=== PATIENT | female | born 1985 | race Two or more races ===

== ENCOUNTER → 2020-06-12 | Outpatient (CLI) | payer BC ==
[2020-06-12 16:35] LABS: Basophils # (auto) 0.1 10 ^3/uL (0-0.2); Basophils % (auto) 0.7 % (0.0-2.0); Eosinophils # (auto) 0.1 10 ^3/uL (0-0.8); Eosinophils % (auto) 1.5 % (0.0-7.0); Hematocrit 41.6 % (36.0-46.0); Hemoglobin 13.7 g/dL (12.2-16.2); Lymphocytes # (auto) 2.7 10 ^3/uL (0.4-5.4); Lymphocytes % (auto) 32.2 % (10.0-50.0); Mean Corpuscular Hemoglobin 28.1 pg (28.0-32.0); Mean Corpuscular Volume 85.3 fL (80.0-100.0); Monocytes # (auto) 0.4 10 ^3/uL (0-1.3); Monocytes % (auto) 4.6 % (0.0-12.0); Neutrophils # (auto) 5.2 10 ^3/uL (1.6-8.6); Platelet Count (auto) 289 10^3/uL (140-450); Red Blood Cells 4.88 10^6/uL (4.0-5.20); Red Cell Distribution Width 13.7 % (11.8-14.3); White Blood Cell 8.5 10^3/uL (4.4-10.8)
[2020-06-12 16:46] LABS: Albumin 3.9 g/dL (3.4-5.0); Calcium 8.8 mg/dL (8.5-10.1); Potassium 3.8 mmol/L (3.5-5.1)
[2020-06-12 16:50] LABS: BUN/Creatinine Ratio 11.6; Bilirubin, Total 0.4 mg/dL (0.2-1.0)
== END | disposition home or self-care (01) ==
LOC: LAB 16:08
PROVIDERS: ATTEND Internal Medicine Nephrology
DX: E66.01 Morbid (severe) obesity due to excess calories (principal); D18.03 Hemangioma of intra-abdominal structures
CPT/HCPCS: 36415; 80053; 84443; 85025

== ENCOUNTER → 2021-09-03 | Outpatient (CLI) | payer OTHER ==
[2021-09-03 10:25] LABS: Urine Bacteria FEW /hpf (None Seen); Urine Blood Negative /uL (Negative); Urine Specific Gravity 1.015 (1.001-1.035); Urine WBC 1 /hpf (0 - 5)
[2021-09-03 10:53] LABS: Potassium 4.2 mmol/L (3.5-5.1)
[2021-09-03 10:55] LABS: Basophils # (auto) 0 10 ^3/uL (0-0.2); Basophils % (auto) 0.5 % (0.0-2.0); Eosinophils # (auto) 0.1 10 ^3/uL (0-0.8); Eosinophils % (auto) 1.5 % (0.0-7.0); Hematocrit 41.4 % (36.0-46.0); Hemoglobin 13.6 g/dL (12.2-16.2); Lymphocytes # (auto) 2.1 10 ^3/uL (0.4-5.4); Lymphocytes % (auto) 33.5 % (10.0-50.0); Mean Corpuscular Hemoglobin 27.5 pg (28.0-32.0); Mean Corpuscular Hgb Conc. 32.8 g/dL (32.0-36.0); Mean Corpuscular Volume 83.9 fL (80.0-100.0); Monocytes # (auto) 0.4 10 ^3/uL (0-1.3); Monocytes % (auto) 7.3 % (0.0-12.0); Neutrophils # (auto) 3.5 10 ^3/uL (1.6-8.6); Neutrophils % (auto) 57.2 % (37.0-80.0); Nucleated Red Blood Cells % 0.1 %; Red Blood Cells 4.93 10^6/uL (4.0-5.20); White Blood Cell 6.2 10^3/uL (4.4-10.8)
[2021-09-03 11:05] LABS: Albumin 3.6 g/dL (3.4-5.0); BUN/Creatinine Ratio 17.4; Bilirubin, Total 0.4 mg/dL (0.2-1.0); Total Protein 7.6 g/dL (6.4-8.2)
== END | disposition home or self-care (01) ==
LOC: LAB 09:28
PROVIDERS: ATTEND Internal Medicine Nephrology
DX: R10.84 Generalized abdominal pain (principal)
CPT/HCPCS: 36415; 80053; 80061; 81001; 83036; 84443; 85025

== ENCOUNTER → 2022-09-19 | Outpatient (CLI) | payer OTHER ==
[2022-09-19 11:00] LABS: Basophils # (auto) 0 10 ^3/uL (0-0.2); Basophils % (auto) 0.6 % (0.0-2.0); Eosinophils # (auto) 0.1 10 ^3/uL (0-0.8); Eosinophils % (auto) 1.6 % (0.0-7.0); Hematocrit 40.8 % (36.0-46.0); Hemoglobin 13.5 g/dL (12.2-16.2); Lymphocytes # (auto) 2.5 10 ^3/uL (0.4-5.4); Lymphocytes % (auto) 30.8 % (10.0-50.0); Mean Corpuscular Hemoglobin 27.6 pg (28.0-32.0); Mean Corpuscular Volume 83.5 fL (80.0-100.0); Monocytes # (auto) 0.6 10 ^3/uL (0-1.3); Neutrophils # (auto) 4.8 10 ^3/uL (1.6-8.6); Nucleated Red Blood Cells % 0.2 %; Red Blood Cells 4.89 10^6/uL (4.0-5.20); Red Cell Distribution Width 14.2 % (11.8-14.3)
[2022-09-19 11:46] LABS: Albumin 3.6 g/dL (3.4-5.0)
[2022-09-19 11:53] LABS: BUN/Creatinine Ratio 22.2 (10.0-20.0); Bilirubin, Total 0.3 mg/dL (0.2-1.0); Calcium 8.9 mg/dL (8.5-10.1); Total Protein 7.5 g/dL (6.4-8.2)
== END | disposition home or self-care (01) ==
LOC: LAB 09:26
PROVIDERS: ATTEND Nurse Practitioner Family
DX: K76.0 Fatty (change of) liver, not elsewhere classified (principal); R73.9 Hyperglycemia, unspecified; E78.00 Pure hypercholesterolemia, unspecified
CPT/HCPCS: 36415; 80053; 80061; 82306; 84439; 84443; 85025

== ENCOUNTER → 2024-01-18 | Outpatient (CLI) | payer OTHER ==
[2024-01-18 08:10] LABS: Basophils # (auto) 0 10 ^3/uL (0-0.2); Basophils % (auto) 0.4 % (0.0-2.0); Eosinophils # (auto) 0.2 10 ^3/uL (0-0.8); Eosinophils % (auto) 1.9 % (0.0-7.0); Hematocrit 38.3 % (36.0-46.0); Lymphocytes # (auto) 2.9 10 ^3/uL (0.4-5.4); Lymphocytes % (auto) 33.9 % (10.0-50.0); Mean Corpuscular Hemoglobin 28.2 pg (28.0-32.0); Mean Corpuscular Volume 83.1 fL (80.0-100.0); Monocytes # (auto) 0.6 10 ^3/uL (0-1.3); Monocytes % (auto) 7.4 % (0.0-12.0); Neutrophils # (auto) 4.9 10 ^3/uL (1.6-8.6); Neutrophils % (auto) 56.4 % (37.0-80.0); Red Blood Cells 4.61 10^6/uL (4.0-5.20); Red Cell Distribution Width 14.6 % (11.8-14.3); White Blood Cell 8.7 10^3/uL (4.4-10.8)
[2024-01-18 09:01] LABS: Alanine Aminotransferase 29 U/L (7-40); Albumin 4.4 g/dL (3.2-4.8); Alkaline Phosphatase 81 U/L (46-116); Anion Gap 7 (5-15); Aspartate Aminotransferase 12 U/L (13-40); BUN/Creatinine Ratio 15.8 (10.0-20.0); Bilirubin, Total 0.4 mg/dL (0.2-1.0); Blood Urea Nitrogen 12 mg/dL (9-23); Calcium 9.3 mg/dL (8.7-10.4); Carbon Dioxide 24 mmol/L (20-30); Chloride 108 mmol/L (98-107); Cholesterol 142 mg/dL (< 200); Glucose 105 mg/dL (74-106); HDL Cholesterol 42 mg/dL (40-59); LDL Cholesterol 91 mg/dL (< 100); Potassium 4.1 mmol/L (3.5-5.1); Sodium 139 mmol/L (136-145); Total Protein 6.9 g/dL (5.7-8.2); Triglycerides 116 mg/dL (< 150)
== END | disposition home or self-care (01) ==
LOC: LAB 07:44
PROVIDERS: ATTEND Nurse Practitioner Family
DX: E78.5 Hyperlipidemia, unspecified (principal); E55.9 Vitamin D deficiency, unspecified; E66.01 Morbid (severe) obesity due to excess calories
CPT/HCPCS: 36415; 80053; 80061; 84443; 85025

== ENCOUNTER 2024-02-10 08:06 | Emergency (ER) | payer OTHER ==
[~2024-02-10] VITALS: Ht 167.6 cm; Wt 123.9 kg
[2024-02-10 08:52] VITALS: BP 128/72; PULSE 70; RESP 16; TEMP 97.5; O2SAT 97
[2024-02-10] MEDS ORDERED: CYCL-839 PO (09:56)
[2024-02-10] MEDS ORDERED: IBUP-1456 PO (09:56)
[2024-02-10] MEDS: KETOROLAC TROMETH 60MG/2ML VIAL IM ONE (10:06)
== END 2024-02-10 10:16 | disposition home or self-care (01) ==
LOC: ER 08:06
DX: M72.2 Plantar fascial fibromatosis (principal); Z79.899 Other long term (current) drug therapy
CPT/HCPCS: 73630; 96372; 99283; J1885

== ENCOUNTER 2025-01-16 06:54 | Outpatient (CLI) | payer OTHER ==
[~2025-01-16 06:54] MED LIST: CYCL-839 PO; IBUP-1456 PO
[2025-01-16 07:29] LABS: Hematocrit 39.0 % (36.0-46.0); Hemoglobin 13.1 g/dL (12.2-16.2); Mean Corpuscular Hemoglobin 27.6 pg (28.0-32.0); Mean Corpuscular Volume 82.2 fL (80.0-100.0); Nucleated Red Blood Cells % 0.0 %
[2025-01-16 07:42] LABS: Alanine Aminotransferase 37 U/L (7-40); Albumin 4.5 g/dL (3.2-4.8); Alkaline Phosphatase 99 U/L (46-116); Anion Gap 6 (5-15); BUN/Creatinine Ratio 18.5 (10.0-20.0); Blood Urea Nitrogen 15 mg/dL (9-23); Calcium 9.5 mg/dL (8.7-10.4); Carbon Dioxide 26 mmol/L (20-31); Chloride 108 mmol/L (98-107); Cholesterol 132 mg/dL (< 200); Glucose 104 mg/dL (74-106); Potassium 3.9 mmol/L (3.5-5.1); Sodium 140 mmol/L (136-145); Total Protein 7.1 g/dL (5.7-8.2); Triglycerides 98 mg/dL (< 150)
[2025-01-16 07:50] LABS: Bilirubin, Total 0.3 mg/dL (0.2-1.0); HDL Cholesterol 39 mg/dL (40-59)
== END 2025-01-16 17:00 | disposition home or self-care (01) ==
LOC: LAB 06:54
PROVIDERS: ATTEND Nurse Practitioner Family
DX: E78.5 Hyperlipidemia, unspecified (principal); E55.9 Vitamin D deficiency, unspecified; E66.09 Other obesity due to excess calories
CPT/HCPCS: 36415; 80053; 80061; 82306; 84443; 85025